=== PATIENT | female | born 1970 | race Caucasian/White ===

== ENCOUNTER 2017-02-18 22:00 | Emergency (ER) | payer OTHER ==
[2017-02-18 22:47] VITALS: BP 127/80
--- NOTE | 2017-02-18 22:49 | EDM.PDOC ---
ED HPI GENERAL MEDICAL PROBLEM - General Chief Complaint: General Stated Complaint: R #3 digit deformity Time Seen by Provider: 02/18/17 22:30 Source of Information: Reports: Patient History Limitations: Reports: No Limitations - History of Present Illness INITIAL COMMENTS - FREE TEXT/NARRATIVE: The patient presents with sudden onset of trigger finger of the right 3rd DIP joint and presents with it in flexion and is unable to fully extend the finger. She has some mild discomfort but no judi pain. She denies a history of injury to the finger or previous trigger finger. She denies other symptoms or complaints. 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 Right 3-Middle finger Pain Score (Numeric/FACES): 2 - Related Data Allergies Allergy/AdvReac Type Severity Reaction Status Date / Time No Known Allergies Allergy Verified 02/18/17 22:07 Home Meds: Home Meds Dexlansoprazole [Dexilant] 60 mg PO Q2D 02/18/17 [History] Flaxseed 340 gm PO DAILY 02/18/17 [History] Loratadine/Pseudoephedrine [Claritin-D 12 Hour] 1 tab PO Q12HR PRN 02/18/17 [ History] Multivitamin-Min/Iron/FA/Vit K [Multi-Day Plus Minerals Tablet] 1 each PO DAILY 02/18/17 [History] Past Medical History Musculoskeletal History: Reports: Arthritis Social & Family History - Tobacco Use Smoking Status *Q: Never Smoker Second Hand Smoke Exposure: No ED ROS GENERAL - Review of Systems Review Of Systems: ROS reveals no pertinent complaints other than HPI. ED EXAM, GENERAL - Physical Exam Exam: See Below Exam Limited By: No Limitations General Appearance: Alert, WD/WN, No Apparent Distress Eye Exam: Bilateral Eye: EOMI, Normal Fundi, Normal Inspection, PERRL Ears: Normal External Exam, Normal Canal, Hearing Grossly Normal, Normal TMs Ear Exam: Bilateral Ear: Auricle Normal, Canal Normal, TM normal Nose: Normal Inspection, Normal Mucosa, No Blood Throat/Mouth: Normal Inspection, Normal Lips, Normal Teeth, Normal Gums, Normal Oropharynx, Normal Voice Head: Atraumatic, Normocephalic Neck: Normal Inspection, Supple, Non-Tender, Full Range of Motion. No: Lymphadenopathy (L), Lymphadenopathy (R), Tender Lateral, Tender Midline Respiratory/Chest: No Respiratory Distress, Lungs Clear, Normal Breath Sounds, No Accessory Muscle Use, Chest Non-Tender Cardiovascular: Normal Peripheral Pulses, Regular Rate, Rhythm, No Edema, No Gallop, No Murmur, No Rub Peripheral Pulses: 2+: Radial (L), Radial (R) GI/Abdominal: Normal Bowel Sounds, Soft, Non-Tender, No Organomegaly, No Distention Back Exam: Normal Inspection, Full Range of Motion. No: CVA Tenderness (L), CVA Tenderness (R), Paraspinal Tenderness, Vertebral Tenderness Extremities: Non-Tender, No Pedal Edema, Normal Capillary Refill, Other (Right 3rd finger with trigger finger and in about 60 degrees of flexion at rest. She is unable to extend it. Able to manually extend fully with no difficulty. Sensation and motor function are intact. Capillary refill < 2 seconds. No erythema, warmth, or fluctuance. No swelling. No pain on palpation or palpable deformities.) Neurological: Alert, Oriented, CN II-XII Intact, Normal Cognition, Normal Gait, Normal Reflexes, No Motor/Sensory Deficits Psychiatric: Normal Affect, Normal Mood Skin Exam: Dry, Intact, Normal Color, No Rash Lymphatic: No Adenopathy Course - Vital Signs Last Recorded V/S: Last Vital Signs Temp 37.7 C 02/18/17 22: Pulse 75 02/18/17 22:01 Resp 16 02/18/17 22:01 BP 127/94 H 02/18/17 22: Pulse Ox 100 02/18/17 22:01 Departure - Departure Time of Disposition: 22:54 Disposition: Home, Self-Care 01 Clinical Impression: Trigger finger, right middle finger - Discharge Information Referrals: Josefa Crabtree MD [Primary Care Provider] - - Assessment/Plan Assessment:: Trigger finger, right 3rd DIP joint. Plan: 1. Placed in ventral splint in full extension. Instructed to wear at all times for 1 week. 2. Discussed NSAID regimen but patient is unable to take NSAIDs secondary to moderately severe GI bleed. 3. Discussed rest and splinting and followup with PCP next week. 4. If persistent recommend consideration of injection of local glucocorticoid and continued splinting. 5. If refractory and persistent recommend referral to hand surgeon.
== END 2017-02-18 23:10 | disposition home or self-care (01) ==
LOC: LL.ED 22:00
DX: M65.331 Trigger finger, right middle finger (principal); M19.90 Unspecified osteoarthritis, unspecified site; Z79.899 Other long term (current) drug therapy
CPT/HCPCS: 29130; 99283

== ENCOUNTER 2021-12-19 13:07 | Day surgery (SDC) | payer OTHER ==
[~2021-12-19 13:07] MED LIST: Lactated Ringers 1,000 ML IV SCH; Midazolam 1 MG/ML 2 ML SDV ONE; Propofol 200 MG/20 ML SDV ONE; Sodium Chloride 0.9% 10 ML Syringe FLUSH PRN
[2021-12-19] MEDS ORDERED: Glycopyrrolate 0.2 MG/ML SDV ONE (14:36)
[2021-12-19] MEDS ORDERED: Lidocaine 2% 5 ML SDV ONE (14:40)
[2021-12-19 18:56] VITALS: BP 133/76; PULSE 60
== END 2021-12-19 16:05 | disposition home or self-care (01) ==
LOC: LL.SDS 13:07
PROVIDERS: ATTEND Surgery
DX: R19.5 Other fecal abnormalities (principal); K29.50 Unspecified chronic gastritis without bleeding; B96.81 Helicobacter pylori [H. pylori] as the cause of diseases classified elsewhere; K22.70 Barrett's esophagus without dysplasia; K44.9 Diaphragmatic hernia without obstruction or gangrene; K22.89 Other specified disease of esophagus; K64.4 Residual hemorrhoidal skin tags; K21.00 Gastro-esophageal reflux disease with esophagitis, without bleeding; R55 Syncope and collapse; L71.9 Rosacea, unspecified; E66.9 Obesity, unspecified; M25.551 Pain in right hip; Z87.19 Personal history of other diseases of the digestive system; Z79.899 Other long term (current) drug therapy; Z98.890 Other specified postprocedural states; Z68.31 Body mass index [BMI] 31.0-31.9, adult
CPT/HCPCS: 00813; J2250; J2704; J3490; J7120

== ENCOUNTER 2022-02-25 20:00 | Emergency (ER) | payer OTHER ==
[2022-02-25 20:08] VITALS: BP 129/83; PULSE 75
== END 2022-02-25 21:00 | disposition home or self-care (01) ==
LOC: LL.ED 20:00
DX: S52.501A Unspecified fracture of the lower end of right radius, initial encounter for closed fracture (principal); E66.9 Obesity, unspecified; Z68.30 Body mass index [BMI] 30.0-30.9, adult; Z79.899 Other long term (current) drug therapy; W01.0XXA Fall on same level from slipping, tripping and stumbling without subsequent striking against object, initial encounter; Y92.009 Unspecified place in unspecified non-institutional (private) residence as the place of occurrence of the external cause
CPT/HCPCS: 29125; 73100-RT; 99283